=== PATIENT | female | born 1980 | race Caucasian/White ===

== ENCOUNTER 2019-07-22 16:30 | Inpatient (IN) | payer BC ==
[~2019-07-22] VITALS: Ht 157.5 cm; Wt 55.3 kg
--- NOTE | 2019-07-22 16:46 | NUR ---
PT BIB AMBULANCE WITH A C/O VAGINAL BLEEDING. PT IS CURRENTLY . PT'S LMP 04/2019. VAGINAL BLEEDING IS BRIGHT RED. PT WAS TRIAGED AND TAKEN TO ER 6.
[2019-07-22] MEDS ORDERED: ONDANSETRON HCL/PF 4 MG/2 ML VIAL ONE ×2 (16:54→19:03)
[2019-07-22 16:59] LABS: BASOPHILS % (AUTO) 0.4 % (0.0-2.0); EOSINOPHILS % (AUTO) 0.4 % (0.0-6.0); HEMATOCRIT 37 % (33-45); HEMOGLOBIN 12.1 g/dL (11.5-14.8); LYMPHOCYTES # (AUTO) 1.2 /CMM (0.8-4.8); LYMPHOCYTES % (AUTO) 11.4 % (20.0-44.0); MEAN CORPUSCULAR HGB CONC 33 g/dl (31.0-36.0); MEAN CORPUSCULAR VOLUME 80 fL (82-100); MONOCYTES # (AUTO) 0.5 /CMM (0.1-1.30); MONOCYTES % (AUTO) 4.9 % (2.0-12.0); NEUTROPHILS # (AUTO) 9.1 /CMM (1.8-8.9); NEUTROPHILS % (AUTO) 82.9 % (43.0-81.0); PLATELET COUNT (AUTO) 164 /CMM (150-450); RED BLOOD CELL COUNT(AUTO) 4.64 MIL/uL (4.0-5.2); WHITE BLOOD COUNT (AUTO) 10.9 K/uL (4.3-11.0)
[2019-07-22] MEDS ORDERED: IV NS 0.9% 1,000 ML BAG IV ONE ×2 (17:00→19:00)
[2019-07-22] MEDS ORDERED: ONDANSETRON HCL/PF 4 MG/2 ML VIAL IVP ONE (17:00)
[2019-07-22 17:09] LABS: CALCIUM, SERUM 8.5 mg/dL (8.5-10.1); CREATININE 0.6 mg/dL (0.6-1.3); POTASSIUM 3.3 mmol/L (3.5-5.1)
[2019-07-22 17:36] LABS: ALBUMIN 3.5 g/dL (3.4-5.0); BILIRUBIN,DIRECT 0.1 mg/dL (0.0-0.2); BILIRUBIN,TOTAL 0.4 mg/dL (0.2-1.0); TOTAL PROTEIN, SERUM 7.2 g/dL (6.4-8.2)
[2019-07-22 18:32] LABS: HEMOGLOBIN 10.6 g/dL (11.5-14.8)
--- NOTE | 2019-07-22 18:47 | NUR ---
PT AMBULATED TO THE BATHROOM WITHIN THE ROOM WITH A STEADY GAIT. PT STATED THAT SHE PASSED ANOTHER LARGE CLOT.
--- NOTE | 2019-07-22 18:54 | NUR ---
ANOTHER LITER STARTED PER .
[2019-07-22] MEDS ORDERED: OXYTOCIN 10 UNIT/ML ML ONE (18:57)
[2019-07-22] MEDS ORDERED: ONDANSETRON HCL/PF 4 MG/2 ML VIAL IV ONE (19:00)
[2019-07-22] MEDS ORDERED: MORPHINE SULFATE INJ 2 MG/ML DISP.SYRIN IV ONE (19:00)
[2019-07-22] MEDS ORDERED: OXYTOCIN 10 UNIT/ML ML IV ONE (19:00)
[2019-07-22] MEDS ORDERED: MORPHINE SULFATE INJ 4 MG/ML DISP.SYRIN ONE (19:04)
--- NOTE | 2019-07-22 19:09 | NUR ---
PT APPEARS TO BE RESTING COMFORTABLY WITH NO S/S OF PAIN OR DISTRESS.
--- NOTE | 2019-07-22 20:25 | NUR ---
PT'S IS AT THE BEDSIDE AND WOULD LIKE AN UPDATE. Brent JOY NP NOTIFIED AND IS AT THE BEDSIDE SPEAKING TO THE PT AND HER .
--- NOTE | 2019-07-22 20:33 | NUR ---
PT SYNCOPIZED ON THE WAY TO THE BATHROOM. PT'S CAUGHT HER AND I ASSISTED THE PT TO THE GURNEY. VSS
--- NOTE | 2019-07-22 20:34 | NUR ---
Brent BATEMAN NP AT THE BEDSIDE SPEAKING TO THE PT.
[2019-07-22 21:34] LABS: HEMOGLOBIN 8.3 g/dL (11.5-14.8)
--- NOTE | 2019-07-22 21:45 | NUR ---
PT APPEARS TO BE RESTING COMFORTABLY. NO S/S OF PAIN OR DISTRESS.
--- NOTE | 2019-07-22 22:23 | NUR ---
[facility]
--- NOTE | 2019-07-22 23:15 | NUR ---
CALLING REPORT TO MASSIMO BLANTON
--- NOTE | 2019-07-22 23:15 | NUR ---
BLOOD CONSENT SIGNED AND IN THE CHART.
[2019-07-22 23:27] VITALS: BP 99/59
--- NOTE | 2019-07-22 23:27 | NUR ---
MS RN NOTES PATIENT ARRIVED [facility] FROM ER AT 2327. PATIENT IS AWAKE, ALERT AND ORIENTED X 4. BREATHING EVEN AND UNLABORED ON ROOM AIR. SHOWS NO SIGNS OF ACUTE RESPIRATORY DISTRESS, NO ACUTE PAIN. IV ON LAC 18G, CLEAN DRY AND INTACT. SHOWS NO SIGNS OF INFILTRATION, NO REDNESS. SKIN IS INTACT. BELONGINGS CHECKLIST COMPLETED. ORIENTED TO ROOM AND STAFF. SAFETY PRECAUTION IN PLACE. BED IN LOWEST POSITION, LOCKED, AND CALL LIGHT KEPT WITHIN REACH. WILL CONTINUE TO MONITOR.
[2019-07-22 23:30] VITALS: BP 99/59
[2019-07-23] VITALS (14 sets, daily range): BP systolic 92–119; BP diastolic 50–74
[2019-07-23] MEDS ORDERED: ACETAMINOPHEN 325 MG TABLET PO PRN (02:00)
[2019-07-23] MEDS ORDERED: ZOLPIDEM TARTRATE 5 MG TABLET PO PRN (02:00)
[2019-07-23] MEDS ORDERED: MAG HYDROX/AL HYDROX/SIMETH 30 ML UDC PO PRN (02:00)
[2019-07-23] MEDS ORDERED: IV NS 0.9% 1,000 ML IV PRN (02:00)
[2019-07-23] MEDS ORDERED: ONDANSETRON HCL/PF 4 MG/2 ML VIAL IVP PRN (02:00)
[2019-07-23] MEDS ORDERED: HYDROCODONE/APAP 5/325MG 1 EACH TABLET PO PRN (02:00)
[2019-07-23] MEDS ORDERED: Z GUARD REMEDY 2 OZ OINT TP PRN (02:00)
--- NOTE | 2019-07-23 07:16 | NUR ---
MS RN NOTES PATIENT IN BED, ASLEEP, ALERT AND ORIENTED X 4. BREATHING EVEN AND UNLABORED ON ROOM AIR. SHOWS NO SIGNS OF ACUTE RESPIRATORY DISTRESS, NO ACUTE PAIN. IV ON LAC 18G, CLEAN DRY AND INTACT. SHOWS NO SIGNS OF INFILTRATION, NO REDNESS. SKIN IS INTACT. ALL DUE MEDICATIONS GIVEN. SAFETY PRECAUTION IN PLACE. BED IN LOWEST POSITION, LOCKED, AND CALL LIGHT KEPT WITHIN REACH. WILL ENDORSE TO ONCOMING NURSE.
--- NOTE | 2019-07-23 08:00 | NUR ---
MS RN OPENING NOTES Received Patient awake and resting in bed. A/O x 4. VS stable with no acute distress. Breathing even and unlabored on room air with no respiratory distress. Denies pain. 18g PIV on LAC clean, dry, intact, and flushing well with blood transfusing at this time. No signs and symptoms of allergic reaction. Patient in stable condition. Safety precautions in place. Bed locked and set to lowest position with side rails x 2 up. All needs rendered at this time. Call light within reach. Family at bedside. Will continue to monitor.
--- NOTE | 2019-07-23 09:15 | NUR ---
MS RN NOTES Blood transfusion complete at this time. Patient in stable condition. VS stable with no acute distress. Breathing even and unlabored on room air with no respiratory distress. No signs and symptoms of allergic reaction noted. Family at bedside. Will continue to monitor.
[2019-07-23 12:06] LABS: CALCIUM, SERUM 8.2 mg/dL (8.5-10.1); CREATININE 0.5 mg/dL (0.6-1.3); MAGNESIUM 1.9 mg/dL (1.8-2.4); PHOSPHORUS 2.7 mg/dL (2.5-4.9); POTASSIUM 3.7 mmol/L (3.5-5.1)
[2019-07-23 12:31] LABS: BASOPHILS % (AUTO) 0.2 % (0.0-2.0); EOSINOPHILS % (AUTO) 0.2 % (0.0-6.0); HEMATOCRIT 34 % (33-45); HEMOGLOBIN 11.4 g/dL (11.5-14.8); LYMPHOCYTES # (AUTO) 1.3 /CMM (0.8-4.8); LYMPHOCYTES % (AUTO) 16.1 % (20.0-44.0); MEAN CORPUSCULAR HGB CONC 33 g/dl (31.0-36.0); MEAN CORPUSCULAR VOLUME 82 fL (82-100); MONOCYTES # (AUTO) 0.4 /CMM (0.1-1.30); MONOCYTES % (AUTO) 4.9 % (2.0-12.0); NEUTROPHILS # (AUTO) 6.4 /CMM (1.8-8.9); NEUTROPHILS % (AUTO) 78.6 % (43.0-81.0); PLATELET COUNT (AUTO) 171 /CMM (150-450); RED BLOOD CELL COUNT(AUTO) 4.16 MIL/uL (4.0-5.2); WHITE BLOOD COUNT (AUTO) 8.1 K/uL (4.3-11.0)
--- NOTE | 2019-07-23 19:00 | NUR ---
RN MS OPENING NOTES RECEIVED PATIENT IN BED AWAKE ALERT AND ORIENTED X4, RESPIRATIONS EVEN AND UNLABORED WITH EQUAL RISE AND FALL OF CHEST,DENIES ANY PAIN OR DISCOMFORT AT THIS TIME IV SITE TO LEFT AC#18 SL INTACT AND PATENT,IVF RUNNING ORDERED, ORIENTED TO STAFF AND CALL LIGHT AND KEPT WITHIN REACH, SAFETY PRECAUTIONS IN PLACE LOW BED AND LOCKED. AMBULATORY STEADY, AT THIS TIME PATIENT DENIES INCREASE IN BLEEDING. STATES " IT HAS BEEN LESS".
--- NOTE | 2019-07-23 19:32 | NUR ---
MS RN CLOSING NOTES Patient awake and resting in bed. A/O x 4. VS stable with no acute distress. Breathing even and unlabored on room air with no respiratory distress. Denies pain. 18g PIV on LAC clean, dry, intact, and flushing well with NS infusing at 75ml/hr. Safety precautions in place. Bed locked and set to lowest position with side rails x 2 up. All needs rendered at this time. Call light within reach. Family at bedside. Will endorse plan of care to oncoming shift.
--- NOTE | 2019-07-23 21:00 | NUR ---
RN MS NOTES SEEN BY ERAN MCCALL WITH NEW ORDER FOR DISCHARGE. PATIENT MADE AWARE ORTHOSTATIC BLOOD PRESSURES TAKEN ERAN MCCALL MADE AWARE. WILL CONTINUE TO FOLLOW ORDERED BY .
--- NOTE | 2019-07-23 22:00 | NUR ---
RN MS CLOSING /DISCHARGE NOTES PATIENT IN BED AWAKE ALERT AND ORIENTED X4, RESPIRATIONS EVEN AND UNLABORED WITH EQUAL RISE AND FALL OF CHEST,DENIES ANY PAIN OR DISCOMFORT AT THIS TIME. DENIES ANY HEAVY VAGINAL BLEEDING STATES " IT HAS LESSEN SINCE ADMISSION". IV SITE TO LEFT AC#18 SL REMOVED NO BLEEDING, ID BAND REMOVED, DISCHARGE PAPER WORKS DONE , DISCHARGE INSTRUCTIONS PROVIDED AND REVIEWED AND EDUCATED, SAFETY PRECAUTIONS IN PLACE . AMBULATORY STEADY, AT THIS TIME,PATIENT TO BE DISCHARGE TO HOME SELF CARE AT BEDSIDE. PATIENT LEFT THE UNIT AND DISCHARGED IN STABLE CONDITION. PATIENT MADE AWARE RETURN TO EMERGENCY ROOM FOR ANY FURTHER CHANGES.
== END 2019-07-23 23:46 | disposition home or self-care (01) | DRG 779 ==
LOC: ER 16:33 → MEDSG2 23:02
PROVIDERS: ADMIT Nurse Practitioner Acute Care; ATTEND Hospitalist
PROC: 30233N1 Transfusion of Nonautologous Red Blood Cells into Peripheral Vein, Percutaneous Approach (ICD-10-PCS; principal; 2019-07-22)
DX: O03.9 Complete or unspecified spontaneous abortion without complication (principal); D62 Acute posthemorrhagic anemia; O09.521 Supervision of elderly multigravida, first trimester; Z3A.10 10 weeks gestation of pregnancy; E86.9 Volume depletion, unspecified
CPT/HCPCS: 36415; 76805-TC; 80048-TC; 80061-TC; 80076-TC; 83735-TC; 84100-TC; 84702-TC; 85025-TC; 85027-TC; 85730-TC; 86921-TC; A6403; G0378; J2270; J2405; J2590; J7030; J7050; P9016-BL